=== PATIENT | male | born 1965 | race Caucasian/White ===

== ENCOUNTER 2018-09-24 05:25 | Inpatient (IN) | payer BC ==
[~2018-09-24] VITALS: Ht 172.7 cm; Wt 83.0 kg
[2018-09-24] MEDS ORDERED: HYDROCODONE/ACETAMINOPHEN 5/325MG TABLET PO ONE (07:00)
[2018-09-24 07:26] LABS: HEMATOCRIT. 40.5 % (42.0-52.0); HEMOGLOBIN. 14.3 g/dL (14.0-18.0); MEAN CORPUSCULAR HEMOGLOBIN 37.2 pg (28.0-32.0); MEAN CORPUSCULAR VOLUME 105.4 fL (80.0-94.0); MEAN PLATELET VOLUME 8.4 fl (7.4-10.4); PLATELET 151 x1000/uL (130-400); RED BLOOD CELL COUNT 3.85 mill/uL (4.7-6.1); RED CELL DISTRIBUTION WIDTH 14.3 % (11.6-14.6)
[2018-09-24 07:28] LABS: CHLORIDE 95 mEq/L (98-107)
[2018-09-24 07:45] LABS: CLARITY URINE TURBID (CLEAR); COLOR URINE ORANGE (YELLOW); KETONES URINE NEGATIVE (NEGATIVE); LEUKOCYTE ESTERASE URINE 1+ (NEGATIVE); NITRITE URINE POSITIVE (NEGATIVE); OCCULT BLOOD URINE 2+ (NEGATIVE); PROTEIN URINE 2+ (NEGATIVE); SPECIFIC GRAVITY URINE 1.016 (1.005-1.030); UROBILINOGEN URINE 0.2 E.U./dL (0.2-1.0)
[2018-09-24 07:56] LABS: PLATELET ESTIMATE NORMAL
[2018-09-24] MEDS ORDERED: PIPERACILLIN/TAZ 2.25G PREMIX 50 ML IV ONE (08:15)
[2018-09-24 08:46] LABS: *AMPHETAMINES SCREEN URINE NEGATIVE (NEGATIVE); *BARBITURATES SCREEN URINE NEGATIVE (NEGATIVE)
[2018-09-24 08:47] LABS: *BENZODIAZEPINES SCREEN URINE NEGATIVE (NEGATIVE); *COCAINE SCREEN URINE NEGATIVE (NEGATIVE); CANNABINOID URINE SCREEN NEGATIVE (NEGATIVE); METHADONE URINE SCREEN NEGATIVE (NEGATIVE); OPIATES URINE SCREEN NEGATIVE (NEGATIVE); PHENCYCLIDINE URINE SCREEN NEGATIVE (NEGATIVE)
[2018-09-24] MEDS ORDERED: BUPIVACAINE HCL 0.5% (5MG/ML) 50ML ONE (08:49)
[2018-09-24] MEDS ORDERED: SKIN ADHESIVE 0.7 GM EA TOP ONE (08:49)
[2018-09-24] MEDS ORDERED: ROCURONIUM BROMIDE 10MG/ML VIAL 5ML IV ONE (08:55)
[2018-09-24] MEDS ORDERED: FENTANYL CITRATE/PF 50MCG/ML 2ML VIAL ONE (08:55)
[2018-09-24] MEDS ORDERED: PROPOFOL 200MG/20ML VIAL IV ONE (08:56)
[2018-09-24] MEDS ORDERED: NEOSTIGMINE METHYLSULFATE 1MG/ML 10 ML VIAL ONE (08:56)
[2018-09-24] MEDS ORDERED: GLYCOPYRROLATE 0.2 MG/ML 2ML VIAL ONE ×3 (08:56→10:30)
[2018-09-24] MEDS ORDERED: MIDAZOLAM HCL 2 MG/2 ML VIAL ONE (08:56)
[2018-09-24] MEDS ORDERED: ONDANSETRON HCL 4MG/2ML INJ ONE (08:56)
[2018-09-24] MEDS ORDERED: DEXAMETHASONE 4MG/ML 1ML VIAL ONE (08:56)
[2018-09-24] MEDS ORDERED: HYDROCODONE/ACETAMINOPHEN 5/325MG TABLET PO PRN ×2 (09:30)
[2018-09-24] MEDS ORDERED: MORPHINE SULFATE 4 MG/ML CPJ (NOT FOR IM USE) IV PRN (09:30)
[2018-09-24] MEDS ORDERED: EPHEDRINE SULFATE 50MG/ML VIAL ONE (10:17)
[2018-09-24] MEDS ORDERED: SODIUM CHLORIDE 0.9% 10ML VIAL ONE (10:17)
[2018-09-24] MEDS ORDERED: LABETALOL HCL 5MG/ML VIAL 20ML IV ONE (10:25)
[2018-09-24] MEDS ORDERED: HYDROMORPHONE HCL/PF 2MG/ML (OR) ONE (10:27)
[2018-09-24] MEDS ORDERED: ONDANSETRON HCL 4MG/2ML INJ IV PRN (10:45)
[2018-09-24] MEDS ORDERED: MEPERIDINE HCL/PF 25MG/ML CPJ IV PRN (10:45)
[2018-09-24] MEDS ORDERED: CEFAZOLIN 1000MG PREMIX 50 ML IV ONE (10:45)
[2018-09-24] MEDS ORDERED: LABETALOL 5MG/ML SYR 20 MG/4 ML SYRINGE IV PRN (10:45)
[2018-09-24] MEDS ORDERED: DEXT 5%/0.9% NACL KCL 20MEQ/L 1,000 ML IV ONE (10:45)
[2018-09-24] MEDS ORDERED: MORPHINE SULFATE 2 MG/ML CPJ (NOT FOR IM USE) IV PRN ×2 (11:15)
[2018-09-24] MEDS: HYDROMORPHONE HCL/PF 2MG/ML CPJ IV PRN ×2 (11:32→11:47)
[2018-09-24 12:30] VITALS: BP 116/82
[2018-09-24 14:28] VITALS: BP 122/90
[2018-09-24] MEDS: DEXT 5%/0.45% NACL KCL 20MEQ/L 1,000 ML IV SCH (15:54)
[2018-09-24] MEDS: METRONIDAZOLE 500 MG PREMIX 100 ML IV SCH ×2 (15:55→22:14)
[2018-09-24 16:00] VITALS: BP 112/74
[2018-09-24] MEDS: CEFAZOLIN 1000MG PREMIX 50 ML IV SCH (17:44)
[2018-09-24 20:00] VITALS: BP 137/92
[2018-09-24 23:56] LABS: PHOSPHORUS 3.4 mg/dL (2.5-4.9)
[2018-09-25] VITALS: BP 113/78
[2018-09-25] MEDS: CEFAZOLIN 1000MG PREMIX 50 ML IV SCH ×2 (02:02→09:26)
[2018-09-25] MEDS: ONDANSETRON HCL 4MG/2ML INJ IV PRN (02:02)
[2018-09-25 04:00] VITALS: BP 111/84
[2018-09-25] MEDS: DEXT 5%/0.45% NACL KCL 20MEQ/L 1,000 ML IV SCH (05:08)
[2018-09-25] MEDS: METRONIDAZOLE 500 MG PREMIX 100 ML IV SCH (05:08)
[2018-09-25 07:10] LABS: HEMATOCRIT 41.5 % (42.0-52.0); HEMOGLOBIN 14.8 g/dL (14.0-18.0); MEAN CORPUSCULAR HEMOGLOBIN 37.8 pg (28.0-32.0); MEAN CORPUSCULAR VOLUME 106.2 fL (80.0-94.0); PLATELET 196 x1000/uL (130-400); RED BLOOD CELL COUNT 3.91 mill/uL (4.7-6.1); RED CELL DISTRIBUTION WIDTH 14.2 % (11.6-14.6)
[2018-09-25 07:36] LABS: CHLORIDE 96 mEq/L (98-107)
[2018-09-25 08:00] VITALS: BP 125/91
[2018-09-25] MEDS ORDERED: SODIUM CHLORIDE 0.9% 500 ML IV ONE (09:30)
[2018-09-25] MEDS: SODIUM CHLORIDE 0.9% 1,000 ML IV SCH ×3 (11:43→21:55)
[2018-09-25 12:00] VITALS: BP 120/88
[2018-09-25] MEDS ORDERED: LORAZEPAM 2MG/ML CPJ IV SCH (14:15)
[2018-09-25] MEDS ORDERED: NON FORMULARY PATIENT HOME MED XX SCH (14:15)
[2018-09-25 16:00] VITALS: BP 121/89
[2018-09-25] MEDS: PANTOPRAZOLE SODIUM 40 MG/VIAL IV SCH ×2 (16:25→22:02)
[2018-09-25 20:00] VITALS: BP 125/89
[2018-09-26] VITALS: BP 121/91
[2018-09-26 04:00] VITALS: BP 136/96
[2018-09-26] MEDS: SODIUM CHLORIDE 0.9% 1,000 ML IV SCH ×3 (05:23→16:34)
[2018-09-26 06:31] LABS: HEMATOCRIT. 38.8 % (42.0-52.0); HEMOGLOBIN. 13.6 g/dL (14.0-18.0); MEAN CORPUSCULAR HEMOGLOBIN 37.7 pg (28.0-32.0); MEAN CORPUSCULAR VOLUME 107.4 fL (80.0-94.0); MEAN PLATELET VOLUME 8.4 fl (7.4-10.4); PLATELET 214 x1000/uL (130-400); RED BLOOD CELL COUNT 3.61 mill/uL (4.7-6.1); RED CELL DISTRIBUTION WIDTH 14.6 % (11.6-14.6)
[2018-09-26 06:43] LABS: PARTIAL THROMBOPLASTIN TIME 32.7 sec (23.4-31.0); PROTHROMBIN TIME 10.4 sec (9.6-11.0)
[2018-09-26 06:57] LABS: PHOSPHORUS 3.2 mg/dL (2.5-4.9)
[2018-09-26 08:00] VITALS: BP 139/100
[2018-09-26] MEDS: PANTOPRAZOLE SODIUM 40 MG/VIAL IV SCH ×2 (08:49→21:16)
[2018-09-26 11:13] VITALS: BP 131/83
[2018-09-26 13:57] LABS: PLATELET ESTIMATE NORMAL
[2018-09-26 16:00] VITALS: BP 125/94
[2018-09-26] MEDS ORDERED: LORAZEPAM 2MG/ML CPJ IV NR (16:00)
[2018-09-26 20:00] VITALS: BP 148/82
[2018-09-27] VITALS: BP 131/90
[2018-09-27] MEDS: SODIUM CHLORIDE 0.9% 1,000 ML IV SCH ×4 (03:08→23:00)
[2018-09-27 04:00] VITALS: BP 136/93
[2018-09-27 07:03] LABS: HEMATOCRIT. 37.2 % (42.0-52.0); HEMOGLOBIN. 12.8 g/dL (14.0-18.0); MEAN CORPUSCULAR HEMOGLOBIN 37.3 pg (28.0-32.0); MEAN CORPUSCULAR VOLUME 108.4 fL (80.0-94.0); MEAN PLATELET VOLUME 8.1 fl (7.4-10.4); PLATELET 200 x1000/uL (130-400); RED BLOOD CELL COUNT 3.43 mill/uL (4.7-6.1); RED CELL DISTRIBUTION WIDTH 14.4 % (11.6-14.6)
[2018-09-27 07:05] LABS: PHOSPHORUS 3.2 mg/dL (2.5-4.9)
[2018-09-27 08:00] VITALS: BP 117/78
[2018-09-27] MEDS: PANTOPRAZOLE SODIUM 40 MG/VIAL IV SCH (08:31)
[2018-09-27 09:52] LABS: BG BASE EXCESS -6.1 mmol/L (-2.0-2.0); BG CARBOXYHEMOGLOBIN 0.3 % (0.5-1.5); BG DEOXYHEMOGLOBIN 5.2 % (0.0-5.0); BG FRACTION INSPIRED OXYGEN 21; BG HCO3 ACT 17.2 mmol/L (22.0-26.0); BG METHEMOGLOBIN 0.3 % (0.0-1.5); BG OXYGEN SATURATION 94.8 % (92.0-98.5); BG OXYHEMOGLOBIN 94.2 % (94.0-97.0); BG PH 7.405 (7.350-7.450); BG PO2 76.2 mmHg (75.0-100.0); BG SAMPLE SITE LEFT BRACHIAL; BG VENT MODE ROOM AIR
[2018-09-27 12:00] VITALS: BP 129/89
[2018-09-27 16:00] VITALS: BP 141/96
[2018-09-27 17:03] LABS: PLATELET ESTIMATE NORMAL
[2018-09-27 20:00] VITALS: BP 134/85
[2018-09-27] MEDS: LORAZEPAM 2MG/ML CPJ IV PRN (21:46)
[2018-09-28] VITALS: BP 132/83
[2018-09-28 04:00] VITALS: BP 106/68
[2018-09-28 06:32] LABS: HEMATOCRIT. 34.3 % (42.0-52.0); HEMOGLOBIN. 11.8 g/dL (14.0-18.0); MEAN CORPUSCULAR HEMOGLOBIN 37.3 pg (28.0-32.0); MEAN CORPUSCULAR VOLUME 108.3 fL (80.0-94.0); MEAN PLATELET VOLUME 8.2 fl (7.4-10.4); PLATELET 227 x1000/uL (130-400); RED BLOOD CELL COUNT 3.17 mill/uL (4.7-6.1); RED CELL DISTRIBUTION WIDTH 14.6 % (11.6-14.6)
[2018-09-28 06:46] LABS: PHOSPHORUS 3.9 mg/dL (2.5-4.9)
[2018-09-28 08:00] VITALS: BP 133/87
[2018-09-28] MEDS: FAMOTIDINE 20MG/2ML VIAL IV SCH (08:53)
[2018-09-28 09:08] LABS: COMPLEMENT C3 136 mg/dL (82-167); GLOMERULAR BASEMENT MEMB AB 4 units (0-20)
[2018-09-28 12:00] VITALS: BP 125/83
[2018-09-28 12:19] LABS: PLATELET ESTIMATE NORMAL
[2018-09-28 15:08] LABS: ANTI-MYELOPEROXIDASE AB < 9.0 U/mL (0.0-9.0); ANTI-PROTEINASE 3 ABS < 3.5 U/mL (0.0-3.5); ATYPICAL P-ANCA <1:20 titer (Neg:<1:20); CYTOPLASMIC C-ANCA <1:20 titer (Neg:<1:20); PERINUCLEAR P-ANCA <1:20 titer (Neg:<1:20)
[2018-09-28 16:00] VITALS: BP 144/96
[2018-09-28] MEDS: LORAZEPAM 2MG/ML CPJ IV PRN (19:07)
[2018-09-28 20:00] VITALS: BP 143/94
[2018-09-29] VITALS: BP 135/94
[2018-09-29] MEDS: SODIUM CHLORIDE 0.9% 1,000 ML IV SCH (00:51)
[2018-09-29 04:00] VITALS: BP 145/94
[2018-09-29 06:31] LABS: PHOSPHORUS 3.8 mg/dL (2.5-4.9)
[2018-09-29 08:00] VITALS: BP 148/90
[2018-09-29] MEDS: FAMOTIDINE 20MG/2ML VIAL IV SCH (08:45)
[2018-09-29 09:03] LABS: HEMATOCRIT. 35.2 % (42.0-52.0); HEMOGLOBIN. 12.1 g/dL (14.0-18.0); MEAN CORPUSCULAR HEMOGLOBIN 36.9 pg (28.0-32.0); MEAN CORPUSCULAR VOLUME 107.3 fL (80.0-94.0); MEAN PLATELET VOLUME 8.1 fl (7.4-10.4); PLATELET 253 x1000/uL (130-400); RED BLOOD CELL COUNT 3.28 mill/uL (4.7-6.1); RED CELL DISTRIBUTION WIDTH 14.5 % (11.6-14.6)
[2018-09-29 09:39] LABS: PLATELET ESTIMATE NORMAL
[2018-09-29] MEDS: DEXT 5%/0.9% NACL 1,000 ML IV SCH ×2 (10:14→20:30)
[2018-09-29 12:00] VITALS: BP 148/96
[2018-09-29 16:00] VITALS: BP 136/91
[2018-09-29 20:00] VITALS: BP 151/94
[2018-09-29] MEDS: LORAZEPAM 2MG/ML CPJ IV PRN (20:17)
[2018-09-30] VITALS (7 sets, daily range): BP systolic 121–147; BP diastolic 84–96
[2018-09-30] MEDS: DEXT 5%/0.9% NACL 1,000 ML IV SCH (06:14)
[2018-09-30] MEDS: ONDANSETRON HCL 4MG/2ML INJ IV PRN (06:20)
[2018-09-30 06:25] LABS: PHOSPHORUS 3.4 mg/dL (2.5-4.9)
[2018-09-30 06:41] LABS: HEMATOCRIT. 40.6 % (42.0-52.0); HEMOGLOBIN. 14.2 g/dL (14.0-18.0); MEAN CORPUSCULAR HEMOGLOBIN 37.6 pg (28.0-32.0); MEAN CORPUSCULAR VOLUME 107.6 fL (80.0-94.0); MEAN PLATELET VOLUME 8.2 fl (7.4-10.4); PLATELET 300 x1000/uL (130-400); RED BLOOD CELL COUNT 3.77 mill/uL (4.7-6.1); RED CELL DISTRIBUTION WIDTH 14.6 % (11.6-14.6)
[2018-09-30] MEDS: FAMOTIDINE 20MG/2ML VIAL IV SCH (08:47)
[2018-09-30 09:51] LABS: PLATELET ESTIMATE NORMAL
[2018-09-30] MEDS: DEXT 5%/0.45% NACL 1000ML 1,000 ML IV SCH ×2 (13:27→23:42)
[2018-09-30] MEDS: LORAZEPAM 2MG/ML CPJ IV PRN (21:01)
[2018-10-01 04:12] VITALS: BP 117/76
[2018-10-01] MEDS: DEXT 5%/0.45% NACL 1000ML 1,000 ML IV SCH (07:00)
[2018-10-01 07:03] LABS: CHLORIDE 119 mEq/L (98-107)
[2018-10-01 08:00] VITALS: BP 136/89
[2018-10-01] MEDS: FAMOTIDINE 20MG/2ML VIAL IV SCH (08:37)
[2018-10-01 08:58] LABS: HEMATOCRIT. 34.1 % (42.0-52.0); HEMOGLOBIN. 11.8 g/dL (14.0-18.0); MEAN CORPUSCULAR HEMOGLOBIN 37.1 pg (28.0-32.0); MEAN CORPUSCULAR VOLUME 107.4 fL (80.0-94.0); MEAN PLATELET VOLUME 8.5 fl (7.4-10.4); PLATELET 282 x1000/uL (130-400); RED BLOOD CELL COUNT 3.17 mill/uL (4.7-6.1); RED CELL DISTRIBUTION WIDTH 14.7 % (11.6-14.6)
[2018-10-01 10:16] LABS: PLATELET ESTIMATE NORMAL
[2018-10-01 12:00] VITALS: BP 141/92
[2018-10-01] MEDS: DEXT 5%/0.2% NACL 1,000 ML IV SCH ×2 (13:33→22:58)
[2018-10-01 16:00] VITALS: BP 146/93
[2018-10-01 20:00] VITALS: BP 141/96
[2018-10-01] MEDS: LORAZEPAM 2MG/ML CPJ IV PRN (20:24)
[2018-10-02] VITALS: BP 140/99
[2018-10-02] MEDS: DEXT 5%/0.2% NACL 1,000 ML IV SCH ×3 (02:20→21:14)
[2018-10-02 04:00] VITALS: BP 123/86
[2018-10-02 06:52] LABS: CHLORIDE 113 mEq/L (98-107)
[2018-10-02 06:58] LABS: HEMATOCRIT. 36.1 % (42.0-52.0); HEMOGLOBIN. 12.3 g/dL (14.0-18.0); MEAN CORPUSCULAR HEMOGLOBIN 36.5 pg (28.0-32.0); MEAN CORPUSCULAR VOLUME 107.5 fL (80.0-94.0); MEAN PLATELET VOLUME 8.9 fl (7.4-10.4); PLATELET 297 x1000/uL (130-400); RED BLOOD CELL COUNT 3.36 mill/uL (4.7-6.1); RED CELL DISTRIBUTION WIDTH 14.3 % (11.6-14.6)
[2018-10-02 07:16] LABS: PHOSPHORUS 3.3 mg/dL (2.5-4.9)
[2018-10-02] MEDS: FAMOTIDINE 20MG/2ML VIAL IV SCH (07:57)
[2018-10-02 08:00] VITALS: BP 140/96
[2018-10-02] MEDS: LACTOBACILLUS GG CAPSULE PO SCH (09:34)
[2018-10-02 11:33] LABS: PLATELET ESTIMATE NORMAL
[2018-10-02 11:53] VITALS: BP 138/91
[2018-10-02 16:00] VITALS: BP 140/90
[2018-10-02] MEDS: LORAZEPAM 2MG/ML CPJ IV PRN (21:13)
[2018-10-03 09:07] VITALS: BP 145/96
[2018-10-03] MEDS: LACTOBACILLUS GG CAPSULE PO SCH (09:22)
[2018-10-03] MEDS: FAMOTIDINE 20MG/2ML VIAL IV SCH (09:23)
[2018-10-03] MEDS: DEXT 5%/0.2% NACL 1,000 ML IV SCH ×2 (11:40→18:20)
[2018-10-03 12:00] VITALS: BP 140/92
[2018-10-03 16:00] VITALS: BP 135/88
[2018-10-03 20:00] VITALS: BP 148/90
[2018-10-03] MEDS ORDERED: ACETAMINOPHEN 320MG/10ML UDC PO PRN (21:30)
[2018-10-03] MEDS ORDERED: ACETAMINOPHEN 650MG/20.3ML UDC PO PRN (22:00)
[2018-10-04] VITALS: BP 140/90
[2018-10-04] MEDS: DEXT 5%/0.2% NACL 1,000 ML IV SCH ×4 (00:11→19:59)
[2018-10-04 04:00] VITALS: BP 137/95
[2018-10-04 06:47] LABS: HEMATOCRIT. 31.3 % (42.0-52.0); HEMOGLOBIN. 11.1 g/dL (14.0-18.0); MEAN CORPUSCULAR HEMOGLOBIN 37.5 pg (28.0-32.0); MEAN CORPUSCULAR VOLUME 105.9 fL (80.0-94.0); PLATELET 272 x1000/uL (130-400); RED BLOOD CELL COUNT 2.95 mill/uL (4.7-6.1); RED CELL DISTRIBUTION WIDTH 14.3 % (11.6-14.6)
[2018-10-04 07:36] LABS: PHOSPHORUS 3.3 mg/dL (2.5-4.9)
[2018-10-04 08:00] VITALS: BP_SYST 140; BP_SYST 147; BP_DIAS 88; BP_DIAS 91
[2018-10-04] MEDS: LACTOBACILLUS GG CAPSULE PO SCH (08:34)
[2018-10-04] MEDS: FAMOTIDINE 20MG/2ML VIAL IV SCH (08:34)
[2018-10-04 12:00] VITALS: BP_SYST 134; BP_SYST 142; BP_DIAS 67; BP_DIAS 90
[2018-10-04 13:55] LABS: PLATELET ESTIMATE NORMAL
[2018-10-04 14:40] LABS: CLARITY URINE CLOUDY (CLEAR); COLOR URINE ORANGE (YELLOW); KETONES URINE NEGATIVE (NEGATIVE); LEUKOCYTE ESTERASE URINE TRACE (NEGATIVE); NITRITE URINE NEGATIVE (NEGATIVE); OCCULT BLOOD URINE 3+ (NEGATIVE); PROTEIN URINE 1+ (NEGATIVE); SPECIFIC GRAVITY URINE 1.013 (1.005-1.030); UROBILINOGEN URINE 0.2 E.U./dL (0.2-1.0)
[2018-10-04 16:00] VITALS: BP 143/92
[2018-10-04 20:00] VITALS: BP_SYST 129; BP_SYST 139; BP_DIAS 86; BP_DIAS 91
[2018-10-05] VITALS (17 sets, daily range): BP systolic 128–146; BP diastolic 83–97
[2018-10-05] MEDS: DEXT 5%/0.2% NACL 1,000 ML IV SCH (03:29)
[2018-10-05 06:35] LABS: HEMATOCRIT. 27.5 % (42.0-52.0); HEMOGLOBIN. 9.7 g/dL (14.0-18.0); MEAN CORPUSCULAR HEMOGLOBIN 37.2 pg (28.0-32.0); MEAN CORPUSCULAR VOLUME 105.6 fL (80.0-94.0); MEAN PLATELET VOLUME 9.3 fl (7.4-10.4); PLATELET 250 x1000/uL (130-400); RED CELL DISTRIBUTION WIDTH 14.5 % (11.6-14.6)
[2018-10-05 08:19] LABS: PHOSPHORUS 3.4 mg/dL (2.5-4.9)
[2018-10-05] MEDS: LACTOBACILLUS GG CAPSULE PO SCH (08:35)
[2018-10-05] MEDS: FAMOTIDINE 20MG/2ML VIAL IV SCH (08:35)
[2018-10-05] MEDS ORDERED: POTASSIUM CHLORIDE 20MEQ TABLET SR PO NR (09:00)
[2018-10-05] MEDS ORDERED: FENTANYL CITRATE/PF 50MCG/ML 2ML VIAL ONE (14:25)
[2018-10-05] MEDS ORDERED: LIDOCAINE HCL 1% 20ML VIAL (Pyxis) INJ ONE (14:31)
[2018-10-05] MEDS ORDERED: SODIUM BICARBONATE 4% (2.4MEQ) 5ML VIAL IV ONE (14:31)
[2018-10-05] MEDS ORDERED: FENTANYL CITRATE/PF 50MCG/ML 2ML VIAL IV ONE (15:15)
[2018-10-05 15:50] LABS: PLATELET ESTIMATE NORMAL
[2018-10-05] MEDS: METRONIDAZOLE 500 MG PREMIX 100 ML IV SCH ×2 (16:20→23:25)
[2018-10-05] MEDS ORDERED: LEVOFLOXACIN 750MG PREMIX 150 ML IV SCH (16:30)
[2018-10-05 16:51] LABS: INR 1.1; PARTIAL THROMBOPLASTIN TIME 30.6 sec (23.4-31.0); PROTHROMBIN TIME 11.7 sec (9.6-11.0)
[2018-10-05] MEDS: LORAZEPAM 2MG/ML CPJ IV PRN (17:05)
[2018-10-05] MEDS: MORPHINE SULFATE 2 MG/ML CPJ (NOT FOR IM USE) IV PRN ×2 (18:49→23:25)
[2018-10-06] VITALS: BP 145/89
[2018-10-06 04:00] VITALS: BP 135/89
[2018-10-06 06:30] LABS: PHOSPHORUS 3.2 mg/dL (2.5-4.9)
[2018-10-06 06:41] LABS: HEMATOCRIT. 27.8 % (42.0-52.0); HEMOGLOBIN. 9.7 g/dL (14.0-18.0); MEAN CORPUSCULAR HEMOGLOBIN 36.9 pg (28.0-32.0); MEAN CORPUSCULAR VOLUME 105.3 fL (80.0-94.0); MEAN PLATELET VOLUME 9.3 fl (7.4-10.4); PLATELET 261 x1000/uL (130-400); RED BLOOD CELL COUNT 2.64 mill/uL (4.7-6.1); RED CELL DISTRIBUTION WIDTH 14.5 % (11.6-14.6)
[2018-10-06 08:00] VITALS: BP 138/97
[2018-10-06] MEDS ORDERED: CLONIDINE 0.1MG TABLET PO PRN (08:30)
[2018-10-06] MEDS: LORAZEPAM 2MG/ML CPJ IV PRN ×2 (09:06→23:43)
[2018-10-06] MEDS: LACTOBACILLUS GG CAPSULE PO SCH (09:37)
[2018-10-06] MEDS: METRONIDAZOLE 500 MG PREMIX 100 ML IV SCH ×3 (09:37→23:43)
[2018-10-06] MEDS: FAMOTIDINE 20MG/2ML VIAL IV SCH (09:37)
[2018-10-06 12:00] VITALS: BP 144/98
[2018-10-06] MEDS: POTASSIUM ACETATE IV SCH (12:02)
[2018-10-06] MEDS: DEXT IV SCH (12:02)
[2018-10-06] MEDS: NACL IV SCH (12:02)
[2018-10-06] MEDS: LEVOFLOXACIN 250MG PREMIX 50 ML IV SCH (13:45)
[2018-10-06 15:52] VITALS: BP 134/97
[2018-10-06 16:51] LABS: PLATELET ESTIMATE NORMAL
[2018-10-06 20:00] VITALS: BP 140/91
[2018-10-07] VITALS: BP 139/93
[2018-10-07 04:00] VITALS: BP 141/91
[2018-10-07 06:04] LABS: BASOPHILS % 0.4 % (0.0-2.0); EOSINOPHILS % 1.3 % (0.0-5.0); HEMATOCRIT. 30.5 % (42.0-52.0); HEMOGLOBIN. 10.4 g/dL (14.0-18.0); LYMPHOCYTES % 8.3 % (20.0-50.0); MEAN CORPUSCULAR HEMOGLOBIN 36.7 pg (28.0-32.0); MEAN CORPUSCULAR VOLUME 107.6 fL (80.0-94.0); MEAN PLATELET VOLUME 8.9 fl (7.4-10.4); MONOCYTES % 12.8 % (2.0-8.0); NEUTROPHILS % 77.2 % (40.0-76.0); PLATELET 292 x1000/uL (130-400); RED BLOOD CELL COUNT 2.83 mill/uL (4.7-6.1); RED CELL DISTRIBUTION WIDTH 14.4 % (11.6-14.6)
[2018-10-07 06:36] LABS: CHLORIDE 112 mEq/L (98-107)
[2018-10-07 06:46] LABS: PHOSPHORUS 3.7 mg/dL (2.5-4.9)
[2018-10-07 08:00] VITALS: BP 136/83
[2018-10-07] MEDS ORDERED: IOHEXOL-300 50 ML BOTTLE IV ONE (08:33)
[2018-10-07] MEDS: LACTOBACILLUS GG CAPSULE PO SCH (09:15)
[2018-10-07] MEDS: FAMOTIDINE 20MG/2ML VIAL IV SCH (09:15)
[2018-10-07] MEDS: METRONIDAZOLE 500 MG PREMIX 100 ML IV SCH ×3 (09:15→23:58)
[2018-10-07] MEDS: LEVOFLOXACIN 250MG PREMIX 50 ML IV SCH (11:00)
[2018-10-07 12:00] VITALS: BP 141/92
[2018-10-07 16:00] VITALS: BP 139/89
[2018-10-07] MEDS ORDERED: CEFAZOLIN 1000MG PREMIX 50 ML IV SCH (18:00)
[2018-10-07 20:00] VITALS: BP 136/89
[2018-10-07] MEDS ORDERED: SULFAMETHOXAZOLE/TRIMETHOPRIM 800/160MG TABLET PO SCH (21:00)
[2018-10-08] VITALS: BP 127/83
[2018-10-08] MEDS: LORAZEPAM 2MG/ML CPJ IV PRN ×2 (00:34→23:18)
[2018-10-08] MEDS: DEXT IV SCH ×2 (01:41→13:00)
[2018-10-08] MEDS: POTASSIUM ACETATE IV SCH ×2 (01:41→13:00)
[2018-10-08] MEDS: NACL IV SCH ×2 (01:41→13:00)
[2018-10-08 04:00] VITALS: BP 131/86
[2018-10-08 08:00] VITALS: BP 135/91
[2018-10-08 08:07] LABS: BASOPHILS % 0.5 % (0.0-2.0); EOSINOPHILS % 1.3 % (0.0-5.0); HEMATOCRIT. 29.1 % (42.0-52.0); LYMPHOCYTES % 9.5 % (20.0-50.0); MEAN CORPUSCULAR HEMOGLOBIN 36.4 pg (28.0-32.0); MEAN CORPUSCULAR VOLUME 105.5 fL (80.0-94.0); MONOCYTES % 10.4 % (2.0-8.0); NEUTROPHILS % 78.3 % (40.0-76.0); PLATELET 274 x1000/uL (130-400); RED BLOOD CELL COUNT 2.76 mill/uL (4.7-6.1); RED CELL DISTRIBUTION WIDTH 14.8 % (11.6-14.6)
[2018-10-08] MEDS: LACTOBACILLUS GG CAPSULE PO SCH (08:48)
[2018-10-08] MEDS: FAMOTIDINE 20MG/2ML VIAL IV SCH (08:48)
[2018-10-08] MEDS: METRONIDAZOLE 500 MG PREMIX 100 ML IV SCH ×3 (08:48→23:17)
[2018-10-08] MEDS ORDERED: CEFAZOLIN 1000MG PREMIX 50 ML IV SCH (09:00)
[2018-10-08 09:15] LABS: PHOSPHORUS 3.7 mg/dL (2.5-4.9)
[2018-10-08 12:00] VITALS: BP 134/95
[2018-10-08] MEDS: AMLODIPINE 5MG TABLET PO SCH (14:59)
[2018-10-08 16:00] VITALS: BP 133/73
[2018-10-08 20:00] VITALS: BP 134/93
[2018-10-08] MEDS: CEFAZOLIN 1000MG PREMIX 50 ML IV SCH (21:45)
[2018-10-08] MEDS: HEPARIN 5000 UNITS/ML VIAL SUBCUT SCH (21:47)
[2018-10-09] VITALS: BP 135/91
[2018-10-09 04:00] VITALS: BP 134/88
[2018-10-09] MEDS: POTASSIUM ACETATE IV SCH (04:00)
[2018-10-09] MEDS: NACL IV SCH (04:00)
[2018-10-09] MEDS: DEXT IV SCH (04:00)
[2018-10-09 07:14] LABS: INR 1.2; PROTHROMBIN TIME 12.6 sec (9.6-11.0)
[2018-10-09 07:22] LABS: CHLORIDE 114 mEq/L (98-107)
[2018-10-09 07:28] LABS: PHOSPHORUS 3.7 mg/dL (2.5-4.9)
[2018-10-09 07:40] LABS: BASOPHILS % 0.7 % (0.0-2.0); EOSINOPHILS % 1.5 % (0.0-5.0); HEMATOCRIT. 29.5 % (42.0-52.0); HEMOGLOBIN. 10.1 g/dL (14.0-18.0); LYMPHOCYTES % 9.2 % (20.0-50.0); MEAN CORPUSCULAR HEMOGLOBIN 36.4 pg (28.0-32.0); MEAN PLATELET VOLUME 9.5 fl (7.4-10.4); MONOCYTES % 9.3 % (2.0-8.0); NEUTROPHILS % 79.3 % (40.0-76.0); PLATELET 280 x1000/uL (130-400); RED BLOOD CELL COUNT 2.78 mill/uL (4.7-6.1); RED CELL DISTRIBUTION WIDTH 14.7 % (11.6-14.6)
[2018-10-09 07:42] VITALS: BP 125/87
[2018-10-09] MEDS: FAMOTIDINE 20MG/2ML VIAL IV SCH (08:41)
[2018-10-09] MEDS: AMLODIPINE 5MG TABLET PO SCH (08:41)
[2018-10-09] MEDS: LACTOBACILLUS GG CAPSULE PO SCH (08:41)
[2018-10-09] MEDS: METRONIDAZOLE 500 MG PREMIX 100 ML IV SCH (08:41)
[2018-10-09] MEDS: HEPARIN 5000 UNITS/ML VIAL SUBCUT SCH ×2 (08:42→20:29)
[2018-10-09] MEDS: CEFAZOLIN 1000MG PREMIX 50 ML IV SCH ×2 (09:31→20:38)
[2018-10-09 12:00] VITALS: BP 133/90
[2018-10-09 16:00] VITALS: BP 117/74
[2018-10-09] MEDS: METRONIDAZOLE 500MG TABLET PO SCH (17:52)
[2018-10-09 20:00] VITALS: BP 133/91
[2018-10-09] MEDS: LORAZEPAM 2MG/ML CPJ IV PRN (20:52)
[2018-10-10] MEDS: METRONIDAZOLE 500MG TABLET PO SCH ×2 (01:24→10:50)
[2018-10-10 04:00] VITALS: BP 131/86
[2018-10-10 07:06] LABS: BASOPHILS % 0.9 % (0.0-2.0); EOSINOPHILS % 2.3 % (0.0-5.0); HEMATOCRIT. 29.7 % (42.0-52.0); HEMOGLOBIN. 10.3 g/dL (14.0-18.0); LYMPHOCYTES % 10.9 % (20.0-50.0); MEAN CORPUSCULAR VOLUME 106.3 fL (80.0-94.0); MEAN PLATELET VOLUME 9.1 fl (7.4-10.4); MONOCYTES % 9.8 % (2.0-8.0); NEUTROPHILS % 76.1 % (40.0-76.0); PLATELET 276 x1000/uL (130-400); RED CELL DISTRIBUTION WIDTH 14.7 % (11.6-14.6)
[2018-10-10 07:24] LABS: CHLORIDE 114 mEq/L (98-107)
[2018-10-10 07:38] LABS: PHOSPHORUS 3.9 mg/dL (2.5-4.9)
[2018-10-10] MEDS: LACTOBACILLUS GG CAPSULE PO SCH (08:39)
[2018-10-10] MEDS: FAMOTIDINE 20MG/2ML VIAL IV SCH (08:39)
[2018-10-10] MEDS: CEFAZOLIN 1000MG PREMIX 50 ML IV SCH (08:40)
[2018-10-10] MEDS: AMLODIPINE 5MG TABLET PO SCH (08:45)
[2018-10-10] MEDS: HEPARIN 5000 UNITS/ML VIAL SUBCUT SCH (08:47)
[2018-10-10 11:02] VITALS: BP 119/83
[2018-10-10] MEDS ORDERED: AMLO5TAB88 PO (11:15)
[2018-10-10] MEDS ORDERED: LACT1CAP77 PO (11:15)
[2018-10-10] MEDS ORDERED: METR-167 PO (11:15)
[2018-10-10] MEDS ORDERED: TRAM50TA94 MT (11:15)
== END 2018-10-10 13:17 | disposition home health service (06) | DRG 338 ==
LOC: ER 05:25 → EDBEDREQ 08:09 → ENRESERV 08:35 → 6EST 12:42
PROVIDERS: ADMIT Family Medicine; ATTEND Family Medicine
PROC: 0DTJ4ZZ Resection of Appendix, Percutaneous Endoscopic Approach (ICD-10-PCS; principal; 2018-09-24)
PROC: 0J9C30Z Drainage of Pelvic Region Subcutaneous Tissue and Fascia with Drainage Device, Percutaneous Approach (ICD-10-PCS; 2018-10-05)
DX: K35.33 Acute appendicitis with perforation, localized peritonitis, and gangrene, with abscess (principal); N17.0 Acute kidney failure with tubular necrosis; E43 Unspecified severe protein-calorie malnutrition; E87.1 Hypo-osmolality and hyponatremia; K56.609 Unspecified intestinal obstruction, unspecified as to partial versus complete obstruction; E87.2 Acidosis; E87.0 Hyperosmolality and hypernatremia; K56.7 Ileus, unspecified; E86.0 Dehydration; E87.6 Hypokalemia; D64.9 Anemia, unspecified; R73.9 Hyperglycemia, unspecified; N30.81 Other cystitis with hematuria; E87.8 Other disorders of electrolyte and fluid balance, not elsewhere classified; B96.20 Unspecified Escherichia coli [E. coli] as the cause of diseases classified elsewhere; Z72.89 Other problems related to lifestyle; Z68.27 Body mass index [BMI] 27.0-27.9, adult
CPT/HCPCS: 36415; 36600; 71045; 74018; 74176; 76770; 77012; 80048; 80305; 82375; 82533; 82550; 82805; 83520; 83605; 83735; 83880; 83930; 84100; 84134; 84145; 84443; 84484; 84550; 85027; 86038; 86160; 86256; 87075; 87077; 87186; 88304; 93005; 93970; 99285; C1729; C1769; C9113; J0690; J1100; J1170; J1644; J1956; J2060; J2250; J2270; J2405; J2543; J2704; J2710; J3010; J3490; J7030; J7040; J7042; L8514; Q9967

== ENCOUNTER → 2018-10-18 | Outpatient (CLI) | payer BC ==
[~2018-10-18] MED LIST: AMLO5TAB88 PO; LACT1CAP77 PO; METR-167 PO; TRAM50TA94 MT
[2018-10-18 12:34] LABS: BASOPHILS % 0.9 % (0.0-2.0); EOSINOPHILS % 3.1 % (0.0-5.0); HEMATOCRIT. 31.7 % (42.0-52.0); LYMPHOCYTES % 15.3 % (20.0-50.0); MEAN CORPUSCULAR HEMOGLOBIN 35.8 pg (28.0-32.0); MEAN CORPUSCULAR VOLUME 103.6 fL (80.0-94.0); MEAN PLATELET VOLUME 8.2 fl (7.4-10.4); MONOCYTES % 10.9 % (2.0-8.0); NEUTROPHILS % 69.8 % (40.0-76.0); PLATELET 245 x1000/uL (130-400); RED BLOOD CELL COUNT 3.06 mill/uL (4.7-6.1); RED CELL DISTRIBUTION WIDTH 14.6 % (11.6-14.6)
[2018-10-18 12:39] LABS: CLARITY URINE CLEAR (CLEAR); COLOR URINE YELLOW (YELLOW); KETONES URINE NEGATIVE (NEGATIVE); LEUKOCYTE ESTERASE URINE TRACE (NEGATIVE); NITRITE URINE NEGATIVE (NEGATIVE); OCCULT BLOOD URINE 3+ (NEGATIVE); PROTEIN URINE TRACE (NEGATIVE); SPECIFIC GRAVITY URINE 1.009 (1.005-1.030); UROBILINOGEN URINE 0.2 E.U./dL (0.2-1.0)
[2018-10-18 12:47] LABS: CHLORIDE 110 mEq/L (98-107)
[2018-10-18 12:56] LABS: PHOSPHORUS 3.6 mg/dL (2.5-4.9)
== END | disposition home or self-care (01) ==
LOC: LAB 11:52
PROVIDERS: ATTEND Internal Medicine Nephrology
DX: I12.9 Hypertensive chronic kidney disease with stage 1 through stage 4 chronic kidney disease, or unspecified chronic kidney disease (principal); N18.9 Chronic kidney disease, unspecified
CPT/HCPCS: 36415; 82570; 83735; 84100; 84156

== ENCOUNTER → 2018-11-15 | Outpatient (CLI) | payer BC ==
[2018-11-15 12:05] LABS: BASOPHILS % 0.6 % (0.0-2.0); EOSINOPHILS % 6.6 % (0.0-5.0); HEMATOCRIT. 33.8 % (42.0-52.0); HEMOGLOBIN. 12.1 g/dL (14.0-18.0); LYMPHOCYTES % 21.5 % (20.0-50.0); MEAN CORPUSCULAR HEMOGLOBIN 34.3 pg (28.0-32.0); MEAN CORPUSCULAR VOLUME 95.7 fL (80.0-94.0); MEAN PLATELET VOLUME 7.5 fl (7.4-10.4); MONOCYTES % 8.8 % (2.0-8.0); NEUTROPHILS % 62.5 % (40.0-76.0); PLATELET 241 x1000/uL (130-400); RED BLOOD CELL COUNT 3.53 mill/uL (4.7-6.1); RED CELL DISTRIBUTION WIDTH 13.5 % (11.6-14.6)
[2018-11-15 12:15] LABS: CLARITY URINE CLEAR (CLEAR); COLOR URINE YELLOW (YELLOW); KETONES URINE NEGATIVE (NEGATIVE); LEUKOCYTE ESTERASE URINE TRACE (NEGATIVE); NITRITE URINE NEGATIVE (NEGATIVE); OCCULT BLOOD URINE 3+ (NEGATIVE); PROTEIN URINE TRACE (NEGATIVE); SPECIFIC GRAVITY URINE 1.015 (1.005-1.030); UROBILINOGEN URINE 0.2 E.U./dL (0.2-1.0)
[2018-11-15 12:33] LABS: CHLORIDE 108 mEq/L (98-107)
[2018-11-15 12:54] LABS: PHOSPHORUS 3.4 mg/dL (2.5-4.9)
== END | disposition home or self-care (01) ==
LOC: LAB 11:27
PROVIDERS: ATTEND Internal Medicine Nephrology
DX: E87.6 Hypokalemia (principal); N17.0 Acute kidney failure with tubular necrosis; I10 Essential (primary) hypertension
CPT/HCPCS: 36415; 81003; 82570; 83735; 84100; 84156

== ENCOUNTER → 2018-12-24 | Outpatient (CLI) | payer BC ==
[2018-12-24 09:04] LABS: BASOPHILS % 0.9 % (0.0-2.0); EOSINOPHILS % 6.5 % (0.0-5.0); HEMATOCRIT. 33.7 % (42.0-52.0); MEAN CORPUSCULAR VOLUME 92.6 fL (80.0-94.0); MEAN PLATELET VOLUME 7.7 fl (7.4-10.4); MONOCYTES % 11.7 % (2.0-8.0); NEUTROPHILS % 55.9 % (40.0-76.0); PLATELET 227 x1000/uL (130-400); RED BLOOD CELL COUNT 3.64 mill/uL (4.7-6.1); RED CELL DISTRIBUTION WIDTH 13.9 % (11.6-14.6)
[2018-12-24 09:09] LABS: CHLORIDE 107 mEq/L (98-107)
[2018-12-24 09:17] LABS: PHOSPHORUS 3.3 mg/dL (2.5-4.9)
[2018-12-24 09:19] LABS: CLARITY URINE CLEAR (CLEAR); COLOR URINE YELLOW (YELLOW); KETONES URINE NEGATIVE (NEGATIVE); LEUKOCYTE ESTERASE URINE NEGATIVE (NEGATIVE); NITRITE URINE NEGATIVE (NEGATIVE); OCCULT BLOOD URINE 3+ (NEGATIVE); PH URINE 5.5 (4.5-8.0); PROTEIN URINE NEGATIVE (NEGATIVE); UROBILINOGEN URINE 0.2 E.U./dL (0.2-1.0)
== END | disposition home or self-care (01) ==
LOC: LAB 07:21
PROVIDERS: ATTEND Internal Medicine Nephrology
DX: I10 Essential (primary) hypertension (principal); N17.9 Acute kidney failure, unspecified
CPT/HCPCS: 36415; 81003; 82570; 83735; 84100; 84156

== ENCOUNTER → 2019-07-11 | Outpatient (CLI) | payer BC ==
[2019-07-11 09:29] LABS: BASOPHILS % 0.8 % (0.0-2.0); EOSINOPHILS % 2.3 % (0.0-5.0); HEMATOCRIT. 43.7 % (42.0-52.0); LYMPHOCYTES % 18.9 % (20.0-50.0); MEAN CORPUSCULAR HEMOGLOBIN 31.4 pg (28.0-32.0); MEAN CORPUSCULAR VOLUME 91.4 fL (80.0-94.0); MEAN PLATELET VOLUME 8.2 fl (7.4-10.4); MONOCYTES % 8.3 % (2.0-8.0); NEUTROPHILS % 69.7 % (40.0-76.0); PLATELET 209 x1000/uL (130-400); RED BLOOD CELL COUNT 4.78 mill/uL (4.7-6.1); RED CELL DISTRIBUTION WIDTH 14.4 % (11.6-14.6)
[2019-07-11 09:32] LABS: CLARITY URINE CLEAR (CLEAR); COLOR URINE YELLOW (YELLOW); KETONES URINE NEGATIVE (NEGATIVE); LEUKOCYTE ESTERASE URINE NEGATIVE (NEGATIVE); NITRITE URINE NEGATIVE (NEGATIVE); OCCULT BLOOD URINE 1+ (NEGATIVE); PROTEIN URINE TRACE (NEGATIVE); SPECIFIC GRAVITY URINE 1.023 (1.005-1.030); UROBILINOGEN URINE 0.2 E.U./dL (0.2-1.0)
[2019-07-11 09:36] LABS: CHLORIDE 107 mEq/L (98-107)
[2019-07-11 09:42] LABS: PHOSPHORUS 2.7 mg/dL (2.5-4.9)
== END | disposition home or self-care (01) ==
LOC: LAB 08:53
PROVIDERS: ATTEND Internal Medicine Nephrology
DX: I10 Essential (primary) hypertension (principal)
CPT/HCPCS: 36415; 80053; 81003; 82570; 83735; 84100; 84156; 85025

== ENCOUNTER 2023-04-10 07:10 | Emergency (ER) | payer BC ==
[~2023-04-10] VITALS: Ht 172.7 cm; Wt 88.0 kg
[2023-04-10 07:20] VITALS: O2SAT 95
[2023-04-10] MEDS ORDERED: ACETAMINOPHEN 325MG TABLET PO ONE (10:15)
[2023-04-10 11:46] VITALS: BP 129/85; PULSE 96; RESP 20; TEMP 98
== END 2023-04-10 11:47 | disposition home or self-care (01) ==
LOC: ER 07:10
DX: J11.1 Influenza due to unidentified influenza virus with other respiratory manifestations (principal); Z20.822 Contact with and (suspected) exposure to COVID-19; Z90.49 Acquired absence of other specified parts of digestive tract
CPT/HCPCS: 99285; 71045; 87426; 87804 ×2; 93005; C9803

== ENCOUNTER 2024-08-15 09:44 | Emergency (ER) | payer BC ==
[~2024-08-15] VITALS: Ht 172.7 cm; Wt 91.0 kg
[2024-08-15 09:53] VITALS: O2SAT 99
[2024-08-15] MEDS ORDERED: FLUORESCEIN SODIUM 1MG/STRIP EACHEYE ONE (10:30)
[2024-08-15] MEDS ORDERED: ERYT60SO14 TP (10:49)
[2024-08-15 10:59] VITALS: BP 136/96; PULSE 88; RESP 18; TEMP 36.8; O2SAT 99
[2024-08-15] MEDS ORDERED: ERYT1OIN6 EACHEYE (12:35)
== END 2024-08-15 11:00 | disposition home or self-care (01) ==
LOC: ER 09:44
DX: S05.02XA Injury of conjunctiva and corneal abrasion without foreign body, left eye, initial encounter (principal); Z90.49 Acquired absence of other specified parts of digestive tract; X58.XXXA Exposure to other specified factors, initial encounter; Y93.89 Activity, other specified; Y92.89 Other specified places as the place of occurrence of the external cause; Y99.8 Other external cause status
CPT/HCPCS: 99283